=== PATIENT | female | born 1980 | race Caucasian/White ===

== ENCOUNTER 2016-04-01 23:15 | Emergency (ER) | payer OTHER ==
[~2016-04-01] VITALS: Ht 167.6 cm; Wt 82.4 kg
[~2016-04-01 23:15] MED LIST: ACYCLOVIR800 MG PO; AMPHETAMINE SAL10 MG PO; BACTRIM,SEPT1 TABLET PO; CLEOCIN300 MG PO; CYMBALTA60 MG PO; FIORICET,ESG1 TABLET PO; FLORASTOR250 MG PO; METHADONE10 MG PO; METOPROLOL SUCC50 MG PO; NOHOMEMEDS; OXYCONTIN30 MG PO; PREDNISONE50 MG PO
[2016-04-01 23:18] VITALS: BP 123/74
[2016-04-02] MEDS ORDERED: AUGMENTIN875 MG PO (19:39)
== END 2016-04-02 00:15 | disposition left against medical advice (07) ==
LOC: EME 23:15
DX: M79.89 Other specified soft tissue disorders (principal); Z53.21 Procedure and treatment not carried out due to patient leaving prior to being seen by health care provider
CPT/HCPCS: 99281; 99282

== ENCOUNTER 2016-04-02 17:05 | Emergency (ER) | payer OTHER ==
[~2016-04-02] VITALS: Ht 167.6 cm; Wt 82.6 kg
[2016-04-02 18:22] LABS: HEMATOCRIT 38.1 % (36.0-46.0); MCH 30.3 PG (29.0-34.0); MCHC 35.2 G/DL (30.0-36.0); MCV 86.2 FL (83-99); MEAN PLAT.VOLUME 8.8 uM^3 (9.5-12.4); PLATELET COUNT 293 K/uL (156-360); RBC DIS.WIDTH-CV 12.3 % (11.8-14.6); RBC DIS.WIDTH-SD 37.6 % (39-53); RED BLOOD COUNT 4.42 M/uL (3.80-5.20)
[2016-04-02 18:35] LABS: PROTHROMBIN TIME 10.4 (9.2-11.2); PTT 28.6 (25-32)
[2016-04-02 18:36] LABS: CHLORIDE 103 mEq/L (99-109); SODIUM 139 mEq/L (136-147)
[2016-04-02 18:37] LABS: GLUCOSE 84 mg/dL (70-99)
[2016-04-02 18:39] LABS: ANION GAP 8 MEQ/L (2-14)
[2016-04-02 18:41] LABS: GFR ESTIMATE (CALCULATED) > 59 mL/min/
[2016-04-02 18:42] LABS: UREA NITROGEN (BUN) 15 mg/dL (9-23)
[2016-04-02] MEDS ORDERED: AUGMENTIN875 MG PO (19:39)
[2016-04-02 19:45] VITALS: BP 133/63
== END 2016-04-02 19:45 | disposition home or self-care (01) ==
LOC: EME 17:05
PROVIDERS: Physician Assistant
DX: M79.89 Other specified soft tissue disorders (principal); R59.0 Localized enlarged lymph nodes; R07.9 Chest pain, unspecified; Z79.891 Long term (current) use of opiate analgesic; F17.200 Nicotine dependence, unspecified, uncomplicated
CPT/HCPCS: 80048; 85027; 85610; 85730; 93971; 99281; 99284

== ENCOUNTER 2016-04-06 01:33 | Emergency (ER) | payer OTHER ==
[~2016-04-06] VITALS: Ht 167.6 cm; Wt 85.3 kg
[~2016-04-06 01:33] MED LIST changes: +AUGMENTIN875 MG PO
[2016-04-06 02:03] LABS: EOSINOPHIL (%) 3.3 % (0-5); EOSINOPHIL COUNT 0.3 K/uL (0-0.3); HEMATOCRIT 38.7 % (36.0-46.0); IMMATURE GRANULOCYTE (%) 0.1 % (0.0-0.7); IMMATURE GRANULOCYTE COUNT 0.1 K/uL; LYMPHOCYTE COUNT 2.6 K/uL (1.0-2.8); MCH 30.1 PG (29.0-34.0); MCHC 34.9 G/DL (30.0-36.0); MCV 86.4 FL (83-99); MONOCYTE (%) 7.2 % (3-12); MONOCYTE COUNT 0.5 K/uL (0-0.8); NEUTROPHIL (%) 54.9 % (45-76); NEUTROPHIL COUNT 4.1 K/uL (1.8-6.4); PLATELET COUNT 303 K/uL (156-360); RBC DIS.WIDTH-CV 12.4 % (11.8-14.6); RBC DIS.WIDTH-SD 37.7 % (39-53); RED BLOOD COUNT 4.48 M/uL (3.80-5.20); WHITE BLOOD COUNT 7.5 K/uL (4.1-10.2)
[2016-04-06 02:18] LABS: CHLORIDE 103 mEq/L (99-109); POTASSIUM 3.5 mEq/L (3.7-5.4); SODIUM 139 mEq/L (136-147)
[2016-04-06 02:20] LABS: GLUCOSE 108 mg/dL (70-99)
[2016-04-06 02:22] LABS: ANION GAP 7 MEQ/L (2-14)
[2016-04-06 02:23] LABS: SERUM ETHYL ALCOHOL < 10 mg/dL
[2016-04-06 02:24] LABS: GFR ESTIMATE (CALCULATED) > 59 mL/min/
[2016-04-06 02:26] LABS: UREA NITROGEN (BUN) 14 mg/dL (9-23)
[2016-04-06 02:27] LABS: SALICYLATE < 5.0 MG/DL (15-30)
[2016-04-06 02:35] LABS: QUANTITATIVE HCG < 4.0 MIU/ML
[2016-04-06] MEDS ORDERED: DOLOPHINE HCL10 MG PO (04:11)
[2016-04-06 04:39] VITALS: BP 109/72
== END 2016-04-06 04:40 | disposition left against medical advice (07) ==
LOC: EME 01:33
PROVIDERS: Emergency Medicine
DX: R51 Headache (principal); F11.10 Opioid abuse, uncomplicated; E87.6 Hypokalemia
CPT/HCPCS: 70450; 80048; 84702; 85025; 99281; 99284; G0480; J1885; J7030

== ENCOUNTER 2016-05-03 21:18 | Emergency (ER) | payer OTHER ==
[~2016-05-03] VITALS: Ht 167.6 cm; Wt 85.2 kg
[~2016-05-03 21:18] MED LIST changes: +DOLOPHINE HCL10 MG PO
[2016-05-03] MEDS ORDERED: REGLAN10 MG PO (22:38)
[2016-05-03] MEDS ORDERED: TORADOL10 MG PO (22:38)
[2016-05-03 22:59] VITALS: BP 134/80
== END 2016-05-03 22:59 | disposition home or self-care (01) ==
LOC: EME 21:18 → EXP 21:18
DX: G43.909 Migraine, unspecified, not intractable, without status migrainosus (principal)
CPT/HCPCS: 99281; 99284; J1885

== ENCOUNTER 2017-06-13 13:01 | Emergency (ER) | payer OTHER ==
[~2017-06-13] VITALS: Ht 167.6 cm; Wt 88.2 kg
[~2017-06-13 13:01] MED LIST changes: +REGLAN10 MG PO; +TORADOL10 MG PO
[2017-06-13 13:25] VITALS: BP 113/66
[2017-06-13 15:52] LABS: HEMATOCRIT 40.1 % (36.0-46.0); HEMOGLOBIN 13.5 G/DL (11.9-15.5); MCH 28.3 PG (29.0-34.0); MCHC 33.7 G/DL (30.0-36.0); MCV 84.1 FL (83-99); RBC DIS.WIDTH-CV 12.5 % (11.8-14.6); RBC DIS.WIDTH-SD 37.9 % (39-53); RED BLOOD COUNT 4.77 M/uL (3.80-5.20)
[2017-06-13 16:07] LABS: ALBUMIN 4.1 g/dL (3.2-4.8)
[2017-06-13 16:08] LABS: CHLORIDE 105 mEq/L (99-109); POTASSIUM 4.9 mEq/L (3.7-5.4); SODIUM 135 mEq/L (136-147)
[2017-06-13 16:10] LABS: GLUCOSE 88 mg/dL (70-99); TOTAL PROTEIN 8.2 g/dL (6.4-8.3)
[2017-06-13 16:12] LABS: TOTAL BILIRUBIN 0.4 mg/dL (0.0-1.0)
[2017-06-13 16:13] LABS: ALKALINE PHOSPHATASE 70 IU/L (3-129)
[2017-06-13 16:14] LABS: CREATININE 0.7 mg/dL (0.6-1.3); GFR ESTIMATE (CALCULATED) > 59 mL/min/
[2017-06-13 16:15] LABS: AST (GOT) 36 IU/L (2-34); UREA NITROGEN (BUN) 15 mg/dL (9-23)
[2017-06-13 16:16] LABS: ALT (GPT) 26 IU/L (3-49)
[2017-06-13 16:22] LABS: QUANTITATIVE HCG < 4.0 MIU/ML
[2017-06-13 16:45] LABS: IMM.PLATELET FRACTION 6.8 (1-7); PLAT.SUFFICIENCY DECREASED; PLATELET COUNT 112 K/uL (156-360)
== END 2017-06-13 16:36 | disposition left against medical advice (07) ==
LOC: RME 13:01 → EME 13:01 → RME 16:36
DX: R10.9 Unspecified abdominal pain (principal); B19.20 Unspecified viral hepatitis C without hepatic coma; Z53.20 Procedure and treatment not carried out because of patient's decision for unspecified reasons; F17.200 Nicotine dependence, unspecified, uncomplicated; M79.7 Fibromyalgia; Z97.5 Presence of (intrauterine) contraceptive device; F11.20 Opioid dependence, uncomplicated; Z79.891 Long term (current) use of opiate analgesic
CPT/HCPCS: 80053; 81003; 84702; 85027; 99281; 99283

== ENCOUNTER 2017-06-19 01:55 | Emergency (ER) | payer OTHER ==
[~2017-06-19] VITALS: Ht 167.6 cm; Wt 80.0 kg
[2017-06-19 02:28] LABS: HEMATOCRIT 39.6 % (36.0-46.0); HEMOGLOBIN 13.6 G/DL (11.9-15.5); MCH 29.2 PG (29.0-34.0); MCHC 34.3 G/DL (30.0-36.0); RBC DIS.WIDTH-CV 12.5 % (11.8-14.6); RBC DIS.WIDTH-SD 38.5 % (39-53); RED BLOOD COUNT 4.66 M/uL (3.80-5.20)
[2017-06-19 02:29] LABS: PLATELET COUNT 221 K/uL (156-360)
[2017-06-19 02:40] LABS: ALBUMIN 4.2 g/dL (3.2-4.8); CHLORIDE 99 mEq/L (99-109); SODIUM 138 mEq/L (136-147)
[2017-06-19 02:42] LABS: GLUCOSE 95 mg/dL (70-99); POTASSIUM 3.6 mEq/L (3.7-5.4); TOTAL PROTEIN 7.9 g/dL (6.4-8.3)
[2017-06-19 02:45] LABS: TOTAL BILIRUBIN 0.8 mg/dL (0.0-1.0)
[2017-06-19 02:46] LABS: ALKALINE PHOSPHATASE 78 IU/L (3-129); CREATININE 0.8 mg/dL (0.6-1.3); GFR ESTIMATE (CALCULATED) > 59 mL/min/
[2017-06-19 02:47] LABS: UREA NITROGEN (BUN) 12 mg/dL (9-23)
[2017-06-19 02:48] LABS: AST (GOT) 27 IU/L (2-34)
[2017-06-19 02:49] LABS: ALT (GPT) 24 IU/L (3-49)
[2017-06-19 02:54] LABS: QUANTITATIVE HCG < 4.0 MIU/ML
[2017-06-19 05:59] VITALS: BP 96/50
== END 2017-06-19 06:00 | disposition home or self-care (01) ==
LOC: EME 01:55
DX: R51 Headache (principal); D72.819 Decreased white blood cell count, unspecified; M79.7 Fibromyalgia; F11.20 Opioid dependence, uncomplicated; F17.200 Nicotine dependence, unspecified, uncomplicated
CPT/HCPCS: 80053; 81003; 84702; 85027; 99281; 99285; J1200; J1885; J2765; J7030

== ENCOUNTER 2017-09-28 03:26 | Emergency (ER) | payer OTHER ==
[~2017-09-28] VITALS: Ht 167.6 cm; Wt 73.3 kg
[2017-09-28 05:37] LABS: BASOPHIL (%) 0.2 % (0-1); EOSINOPHIL (%) 2.6 % (0-5); EOSINOPHIL COUNT 0.1 K/uL (0-0.3); HEMATOCRIT 36.1 % (36.0-46.0); HEMOGLOBIN 12.3 G/DL (11.9-15.5); IMMATURE GRANULOCYTE (%) 0.2 % (0.0-0.7); LYMPHOCYTE (%) 28.9 % (15-42); LYMPHOCYTE COUNT 1.6 K/uL (1.0-2.8); MCH 28.7 PG (29.0-34.0); MCHC 34.1 G/DL (30.0-36.0); MCV 84.1 FL (83-99); MONOCYTE (%) 8.4 % (3-12); MONOCYTE COUNT 0.5 K/uL (0-0.8); NEUTROPHIL (%) 59.7 % (45-76); NEUTROPHIL COUNT 3.2 K/uL (1.8-6.4); PLATELET COUNT 236 K/uL (156-360); RBC DIS.WIDTH-CV 12.8 % (11.8-14.6); RED BLOOD COUNT 4.29 M/uL (3.80-5.20); WHITE BLOOD COUNT 5.4 K/uL (4.1-10.2)
[2017-09-28 05:47] LABS: CHLORIDE 102 mEq/L (99-109); POTASSIUM 3.4 mEq/L (3.7-5.4); SODIUM 137 mEq/L (136-147)
[2017-09-28 05:49] LABS: GLUCOSE 104 mg/dL (70-99)
[2017-09-28 05:53] LABS: CREATININE 0.7 mg/dL (0.6-1.3); GFR ESTIMATE (CALCULATED) > 59 mL/min/
[2017-09-28 05:54] LABS: UREA NITROGEN (BUN) 11 mg/dL (9-23)
[2017-09-28 05:58] LABS: TROP-I INTERPRETATION NEGATIVE; TROPONIN-I < 0.01 ng/mL (0.0-0.30)
[2017-09-28 06:18] VITALS: BP 106/61
== END 2017-09-28 06:21 | disposition home or self-care (01) ==
LOC: EME → EDBD 03:26 → EME 06:21
PROVIDERS: Emergency Medicine
DX: R07.89 Other chest pain (principal); M79.7 Fibromyalgia; M06.9 Rheumatoid arthritis, unspecified; B19.20 Unspecified viral hepatitis C without hepatic coma; F17.200 Nicotine dependence, unspecified, uncomplicated; Z97.5 Presence of (intrauterine) contraceptive device; Z79.891 Long term (current) use of opiate analgesic
CPT/HCPCS: 71046; 80048; 84484; 85025; 85379; 93005; 99281; 99284